=== PATIENT | female | born 1980 | race Caucasian/White ===

== ENCOUNTER 2018-08-15 11:43 | Emergency (ER) | payer OTHER ==
[~2018-08-15] VITALS: Ht 165.1 cm; Wt 126.1 kg
[2018-08-15 11:47] VITALS: BP 173/98
--- NOTE | 2018-08-15 11:57 | NUR ---
PT PRESENTS TO ED WITH C/O HIVES X 2 DAYS. PT DENIES USING NEW DETERGENT, LOTION OR SHAMPOO. PT VERBALIZED SLEEPING IN MOM'S BED AND WAKING UP WITH "RED BUMPS" ALL OVER. DENIES ANY N/V OR SOB. RR EVEN AND UNLABORED. CLEAR LUNG SOUNDS BI.
[2018-08-15] MEDS ORDERED: hydrOXYzine HCL 25 MG TAB PO ONE (12:05)
[2018-08-15] MEDS ORDERED: methylPREDNISolone SS 125 MG in WATER STERILE 2 ML IM ONE (12:05)
[2018-08-15] MEDS ORDERED: diphenhydrAMINE 50 MG/ML VIAL IM ONE (12:05)
[2018-08-15] MEDS ORDERED: FAMOTIDINE 20 MG TAB PO ONE (12:05)
--- NOTE | 2018-08-15 12:32 | NUR ---
po meds given-nadr at this time
--- NOTE | 2018-08-15 13:00 | NUR ---
Patient discharged with v/s stable. Written and verbal after care instructions given and explained. Patient alert, oriented and verbalized understanding of instructions. Ambulatory with steady gait. All questions addressed prior to discharge. ID band removed. Patient advised to follow up with PMD. Rx of Predniasone, Atarax given. Patient educated on indication of medication including possible reaction and side effects. Opportunity to ask questions provided and answered.
[2018-08-15 13:01] VITALS: BP 138/76
== END 2018-08-15 13:00 | disposition home or self-care (01) ==
LOC: MED 11:43
DX: L50.9 Urticaria, unspecified (principal); Z88.0 Allergy status to penicillin
CPT/HCPCS: 96372; 99283; J1200; J2930

== ENCOUNTER 2018-08-26 12:51 | Emergency (ER) | payer OTHER ==
[~2018-08-26] VITALS: Ht 165.1 cm; Wt 125.6 kg
[2018-08-26 12:55] VITALS: BP 125/62
--- NOTE | 2018-08-26 13:02 | NUR ---
PATIENT AMBULATED TO ER BED 11.
--- NOTE | 2018-08-26 13:10 | NUR ---
PT IS A 38 Y/O FEMALE WHO PRESENTS TO THE ED C/O HIVES/RASH. PER PT RASH HAS BEEN GOING ON X2 WEEKS. PT WAS PREVN SEEN IN ED AND GIVEN RX (PT DOES NOT RECALL RX) BUT HAS HAD NO RELIEF. PT DENIES PAIN AT THIS TIME. NOTED GENERALIZED RASH OVER THE BODY WITH ITCHINESS. PT DENIES CP, SOB, N/V/D. PT AWAKE AND ALERT, RR EVEN/UNLABORED. PT REPOSITIONED FOR COMFORT, BED IN LOWEST POSITION. ER MD DR. SUNG NOTIFIED. WILL CONTINUE TO MONITOR. DENIES PMH ALLERGIES---PCN
--- NOTE | 2018-08-26 14:04 | NUR ---
DR SUNG AT BEDSIDE FOR PT EVALUATION
[2018-08-26] MEDS ORDERED: methylPREDNISolone SS 125 MG in WATER STERILE 2 ML IM ONE (14:05)
[2018-08-26] MEDS ORDERED: hydrOXYzine HCL 25 MG TAB PO ONE (14:05)
--- NOTE | 2018-08-26 15:00 | NUR ---
PT AAOX 4. FULL CLEAR SPEECH. NO SIGNS AND SYMPTOMS OF DISTRESS NOTED.
[2018-08-26 15:56] LABS: BARBITURATE, URINE NEG. ng/ml (NEG <=200); BENZODIAZEPINE, URINE NEG. ng/mL (NEG <=200); CANNABINOID, URINE NEG. ng/mL (NEG <=50); COCAINE, URINE NEG. ng/mL (NEG <=300); OPIATE, URINE NEG. ng/mL (NEG <=2000); PHENCYCLIDINE SCREEN,URINE NEG. ng/mL (NEG <=25)
[2018-08-26 16:02] LABS: APPEARANCE,URINE CLEAR (CLEAR); BILIRUBIN,URINE NEGATIVE (NEGATIVE); BLOOD, URINE NEGATIVE (NEGATIVE); COLOR,URINE YELLOW (YELLOW); LEUKOCYTE ESTERASE ,URINE NEGATIVE (NEGATIVE); NITRITE, URINE NEGATIVE (NEGATIVE); UGLUCOSE NEGATIVE (NEGATIVE)
[2018-08-26 16:14] VITALS: BP 118/64
--- NOTE | 2018-08-26 16:14 | NUR ---
Patient discharged with v/s stable. Written and verbal after care instructions given and explained. Patient alert, oriented and verbalized understanding of instructions. Ambulatory with steady gait. All questions addressed prior to discharge. ID band removed. Patient advised to follow up with PMD. Rx of ELIMITE 5% TOPICAL CREAM, PREDNISONE, ATARAX given. Patient educated on indication of medication including possible reaction and side effects. Opportunity to ask questions provided and answered.
== END 2018-08-26 16:14 | disposition home or self-care (01) ==
LOC: MED 12:51
DX: L50.9 Urticaria, unspecified (principal); Z88.0 Allergy status to penicillin
CPT/HCPCS: 80305; 81003; 81025; 96372; 99283; J2930